=== PATIENT | female | born 1950 | race Caucasian/White ===

== ENCOUNTER → 2017-11-09 | Day surgery (SDC) | payer MEDICARE, OTHER ==
[2017-11-02 14:44] LABS: BASOPHILS % 0.5 % (0.0-1.0); EOSINOPHILS # (AUTO) 0.1 (0.0-0.4); EOSINOPHILS % 1.6 % (0.0-6.0); HEMATOCRIT 34.9 % (34.2-44.1); HEMOGLOBIN 11.4 g/dL (12.0-16.0); LYMPHOCYTES # (AUTO) 2.4 (1.0-3.2); LYMPHOCYTES % 42.4 % (18.0-39.1); MEAN CORPUSCULAR HEMOGLOBIN 28.1 pg (28-32); MEAN CORPUSCULAR HGB CONC 32.7 g/dL (31-35); MONOCYTES # (AUTO) 0.4 (0.2-0.8); MONOCYTES % 6.3 % (4.4-11.3); NEUTROPHILS # (AUTO) 2.8 (2.1-6.9); PLATELET COUNT 216 x10e3/uL (140-360); RED BLOOD COUNT 4.06 x10e6/uL (3.6-5.1)
--- NOTE | 2017-11-02 15:57 | Diagnostic Imaging Report ---
PROCEDURE: Frontal and lateral views of the chest. COMPARISON: None. INDICATIONS: PRE OP LEFT TRIGGER FINGER RELEASE SX FINDINGS: Lines/tubes: None. Lungs: The lungs are well inflated. Mild increased lucency in the upper lobes, which may reflect COPD changes. Curvilinear density projecting in the right lower lung only seen on the frontal view, which is likely external to the patient. A linear density in the left mid to lower lung likely reflects subsegmental atelectasis. No consolidation or pulmonary edema. Pleura: There is no pleural effusion or pneumothorax. Heart and mediastinum: Cardiac silhouette is unremarkable. Pulmonary vasculature is normal. Bones: No acute bony abnormality. Metallic prosthesis noted in the right proximal humerus, which is intact. Multiple metallic clips project over the lower cervical area. IMPRESSION: 1. likely COPD changes, without acute cardiopulmonary abnormalities. Chip Sparks M.D. Dictated by: Chip Sparks M.D. on 11/02/2017 at 15:57 Electronically approved by: Chip Sparks M.D. on 11/02/2017 at 15:57
[~2017-11-09] MED LIST: AMITRIPTYLINE H25 MG PO; BACITRACIN ZINC 15 GM OINT ONE; BUPIVACAINE HCL 0.5% INJ 30 ML VIAL INJ ONE; CEFAZOLIN SOD 1 GM VIAL ONE; CELEBREX100 MG PO; COREG12.5 MG PO; DEXAMETHASONE SOD PHOS INJ 4 MG/ML VIAL ONE; FENTANYL CITRATE/PF 100MCG/2 ML INJ ONE; GABAPENTIN100 MG PO; LIDOCAINE HCL 2% LOCAL INJ 5 ML SDV VIAL INJ ONE; LISINOPRIL10 MG PO; MIDAZOLAM HCL 2 MG/2 ML VIAL ONE; MUPIROCIN 2% OINT 22 GM TUBE ONE; NEXIUM5 MG PO; ONDANSETRON HCL INJ 2 MG/ML VIAL ONE; PROPOFOL IV EMULSION 10 MG/ML 20 ML VIAL ONE; ROPINIROLE HCL1 MG PO; SEVOFLURANE INHAL SOLN 250 ML PEN BTL ONE; SYNTHROID125 MCG PO; ZETIA10 MG PO
--- OUTSIDE RECORDS SUMMARY | 2017-11-09 05:19 | XMS REPORT ---
[facility] Address Unknown Phone Unavailable Care Team Providers Care Assistant Store Manager Operations Name Role Phone FERNANDO JASSO Unavailable Unavailable Problems This patient has no known problems. Allergies, Adverse Reactions, Alerts This patient has no known allergies or adverse reactions. Medications This patient has no known medications. Results Test Description Test Time Test Comments Text Results Atomic Results Result Comments CHEST 2 VIEWS [place] [address] Patient Name: HATTIE FINNEGAN MR #: [id number] : 1950 Age/Sex: 66/F Req #: [id number] Adm Physician: Ordered by: MARTA THOMPSON MD Report #: [id number] Location: OR Room/Bed: Procedure: [id number] DX/CHEST 2 VIEWS Exam Date: 11/02/17 Exam Time : 1450 REPORT STATUS: Signed PROCEDURE: Frontal and lateral views of the chest. COMPARISON: None. INDICATIONS: PRE OP LEFT TRIGGER FINGER RELEASE SX FINDINGS: Lines/tubes: None. Lungs: The lungs are well inflated. Mild increased lucency in the upper lobes, which may reflect COPD changes. Curvilinear density projecting in the right lower lung only seen on the frontal view, which is likely external to the patient. A linear density in the left mid to lower lung likely reflects subsegmental atelectasis. No consolidation or pulmonary edema. Pleura: There is no pleural effusion or pneumothorax. Heart and mediastinum: Cardiac silhouette is unremarkable. Pulmonary vasculature is normal. Bones: No acute bony abnormality. Metallic prosthesis noted in the right proximal humerus, which is intact. Multiple metallic clips project over the lower cervical area. IMPRESSION: 1. likely COPD changes, without acute cardiopulmonary abnormalities. Theron Sparks M.D. Dictated by : Theron Sparks M.D. on 11/02/2017 at 15:57 Electronically approved by: Theron Sparks M.D. on 11/02/2017 at 15:57 Dictated By : THERON SPARKS MD [id number] Transcribed By: CARISA on 11/02/17 1667 COPY TO: MARTA THOMPSON MD
--- OUTSIDE RECORDS SUMMARY | 2017-11-09 05:19 | XMS REPORT | Clinical Summary ---
Author Author [facility] Organization [facility] Address Unknown Phone Unavailable Care Team Providers Care Nylon Winder Name Role Phone Shivani Amezquita MD PCP Allergies Active Allergy Reactions Severity Noted Date Comments Morphine Low 03/26/2017 Sweat and malaise. Current Medications Prescription Sig. Disp. Refills Start End Date Status Date lisinopril Take 20 mg by mouth every Active (PRINIVIL,ZESTRIL) 20 mg evening. tablet pantoprazole (PROTONIX) Take 40 mg by mouth every Active 40 MG EC tablet morning. rOPINIRole (REQUIP) 1 MG Take 1-2 mg by mouth Active tablet nightly. carvedilol CR (COREG CR) Take 80 mg by mouth every Active 80 MG 24 hr capsule morning. calcium phosphate-vitamin Chew 1 tablet every Active D3 (CITRACAL + D3, evening. CALCIUM PHOS,) 250 mg calcium- 250 unit tablet,chewable DM/P-EPHED/ACETAMINOPH/DO Take 1 Dose by mouth 2 Active XYLAM (NYQUIL D ORAL) (two) times a day as needed. levothyroxine (SYNTHROID, Take 206 mcg by mouth Active LEVOXYL) 137 mcg tablet once a week. Pt takes 1.5 tablets of 137 mcg=dose of 206 mcg fluticasone (FLONASE) 50 02/12/20 Active mcg/actuation nasal spray 17 cyclobenzaprine Take 10 mg by mouth 3 Active (FLEXERIL) 10 mg tablet (three) times a day as needed for muscle spasms. ezetimibe (ZETIA) 10 mg Take 10 mg by mouth Active tablet daily. zolpidem (AMBIEN) 5 MG Take 5 mg by mouth Active tablet nightly as needed for sleep. ranitidine (ZANTAC) 150 Take 150 mg by mouth 2 Active MG tablet (two) times a day. acetaminophen-codeine Take 1-2 tablets by mouth 15 tablet 0 11/16/19 11/19/19 (TYLENOL WITH CODEINE #3) every 6 (six) hours as 17 17 300-30 mg per tablet needed for moderate pain for up to 12 doses. celecoxib (CeleBREX) 200 Take 200 mg by mouth 06/11/20 Discontin MG capsule every evening. 17 ued levothyroxine (SYNTHROID, Take 137 mcg by mouth 04/06/20 Discontin LEVOXYL) 137 mcg tablet every morning. 17 ued ezetimibe (ZETIA) 10 mg Take 10 mg by mouth 04/06/20 Discontin tablet nightly. 17 ued biotin 5,000 mcg Take 5,000 mg by mouth 06/14/20 Discontin tablet,disintegrating every evening. 17 ued carisoprodol (SOMA) 350 Take 350-700 mg by mouth 06/11/20 Discontin MG tablet nightly. 17 ued HYDROcodone-acetaminophen Take 1-2 tablets by mouth 30 tablet 0 04/26/20 (NORCO) 5-325 mg per every 4 (four) hours as 17 17 tablet needed for moderate pain or severe pain for up to 30 days. Max Daily Amount: 12 tablets ondansetron ODT (ZOFRAN Take 1 tablet (8 mg 30 tablet 0 03/28/20 Discontin ODT) 8 MG disintegrating total) by mouth every 8 17 17 ued tablet (eight) hours as needed for nausea or vomiting for up to 30 days. traMADol (ULTRAM) 50 mg Take 1 tablet (50 mg 30 tablet 0 03/28/20 tablet total) by mouth every 6 17 17 (six) hours as needed for moderate pain for up to 7 days. promethazine (PHENERGAN) Take 1 tablet (25 mg 30 tablet 0 03/29/20 04/28/20 25 MG tablet total) by mouth every 6 17 17 (six) hours as needed for nausea or vomiting for up to 30 days. amoxicillin-pot 04/05/20 06/11/20 Discontin clavulanate (AUGMENTIN) 17 17 ued 875-125 mg per tablet chlordiazepoxide-clidiniu Take 1 capsule by mouth 4 10/20/20 Discontin m (LIBRAX) 5-2.5 mg per (four) times a day before 17 ued capsule meals and nightly. nitrofurantoin Take 100 mg by mouth 4 06/11/20 Discontin (MACRODANTIN) 100 MG (four) times a day. 17 ued capsule Active Problems Problem Noted Date Calculus of gallbladder with acute cholecystitis 03/27/2017 Hypertension 03/27/2017 GERD (gastroesophageal reflux disease) 03/27/2017 Right upper quadrant abdominal pain 03/26/2017 Biliary colic 03/26/2017 Encounters Date Type Specialty Care Team Description 10/27/2017 Hospital Radiology Gil Amezquita MD Thoracic spine pain Encounter 10/21/2017 Procedure Pass Radiology 10/21/2017 Transcribe Access Gil Amezquita MD Thoracic spine pain Orders (Primary Dx) 08/20/2017 Procedure visit Neurology Teena Bone MD Bilateral carpal tunnel syndrome 06/14/2017 Hospital Gastroenterology Trevor Mosqueda MD Encounter 06/14/2017 Anesthesia Gastroenterology Janeth Gonzales Event 06/14/2017 Procedure Pass Gastroenterology 06/14/2017 Surgery Gastroenterology Trevor Mosqueda MD COLONOSCOPY 04/13/2017 Hospital Radiology Gil Amezquita MD Abdominal pain, Encounter unspecified location 04/12/2017 Transcribe Access Gil Amezquita MD Abdominal pain, Orders unspecified location (Primary Dx) 04/07/2017 Telephone General Surgery Laine Anand MA 04/06/2017 Lab Lab Sam Ashton MD Nausea; Generalized abdominal pain 04/06/2017 Office Visit General Surgery Sam Ashton MD Generalized abdominal pain (Primary Dx); Nausea; Surgery follow-up examination; Calculus of gallbladder with acute cholecystitis without obstruction 03/27/2017 Anesthesia General Internal Medicine Junie Hernandez MD Event 03/27/2017 Procedure Pass General Surgery 03/27/2017 Surgery General Surgery Sam Ashton MD CHOLECYSTECTOMY, LAPAROSCOPIC 03/26/2017 [facility] General Internal Medicine Martell Cobian MD Calculus of gallbladder - Encounter Sincere Coronado MD with acute cholecystitis 03/28/2017 without obstruction (Primary Dx); Right upper quadrant abdominal pain; Biliary colic 02/15/2017 Hospital Radiology Gil Amezquita MD Encounter for screening Encounter mammogram for malignant neoplasm of breast 02/12/2017 Transcribe Physical Therapy Martell Soto MD Unspecified fracture of Orders the lower end of right radius, initial encounter for closed fracture (Primary Dx); Trigger thumb of left hand; Trigger finger, right middle finger 02/12/2017 Transcribe Access Gil Amezquita MD Encounter for screening Orders mammogram for malignant neoplasm of breast (Primary Dx) 01/11/2017 Transcribe Physical Therapy Martell Soto MD Wrist fracture, closed, Orders left, initial encounter (Primary Dx); Trigger finger of left thumb; Trigger middle finger of right hand 11/20/2016 Telephone Orthopedic Surgery Maria G Cannon MA 11/17/2016 Telephone Orthopedic Surgery Maria G Cannon MA 11/15/2016 Emergency Emergency Medicine Phani De Luna MD Wrist fracture, right, closed, initial encounter (Primary Dx) after 11/08/2016 Family History Medical History Relation Name Comments Colon cancer Mother Diabetes Mother Heart disease Mother Colon cancer Sister Colon polyps Sister Heart disease Sister Ulcerative colitis Sister Relation Name Status Comments Mother Sister Social History Tobacco Use Types Packs/Day Years Used Date Never Smoker Alcohol Use Drinks/Week oz/Week Comments No Sex Assigned at Date Recorded Not on file Last Filed Vital Signs Vital Sign Reading Time Taken Blood Pressure 116/57 06/14/2017 11:53 AM CDT Pulse 69 06/14/2017 11:53 AM CDT Temperature 37.1 C (98.8 F) 06/14/2017 11:31 AM CDT Respiratory Rate 18 06/14/2017 11:53 AM CDT Oxygen Saturation 92% 06/14/2017 11:53 AM CDT Inhaled Oxygen - - Concentration Weight 93.4 kg (206 lb) 06/14/2017 9:26 AM CDT Height 167.6 cm (5' 6") 06/14/2017 9:26 AM CDT Body Mass Index 33.25 06/14/2017 9:26 AM CDT Plan of Treatment Health Maintenance Due Date Last Done Comments COLONOSCOPY 1998 ZOSTER VACCINE 2008 PNEUMOCOCCAL 2013 POLYSACCHARIDE VACCINE AGE 65 AND OVER PNEUMOCOCCAL-13 2013 INFLUENZA VACCINE 03/23/2017 MAMMOGRAM 02/15/2019 02/15/2017 Procedures Procedure Name Priority Date/Time Associated Diagnosis Comments ESOPHAGOGASTRODUODENOSCOP 06/14/2017 HX OF COLON POLYPS, Y (EGD) 10:30 AM CDT SCREENING, FAMILY HX OF COLON CANCER, DYSPEPSIA, ESPOHAGITIS COLONOSCOPY 06/14/2017 HX OF COLON POLYPS, 10:30 AM CDT SCREENING, FAMILY HX OF COLON CANCER, DYSPEPSIA, ESPOHAGITIS RI AN ELECTIVE Routine 03/27/2017 ENDOTRACHEAL AIRWAY 12:23 PM CDT Procedure Note - Glenna Bella - 03/27/2017 12:20 PM CDT Airway Date/Time: 03/27/2017 11:59 AM Performed by: JUNIE HERNANDEZ Authorized by: JUNIE HERNANDEZ Location: OR Urgency: Elective Difficult Airway: No Anesthesio logist: JUNIE HERNANDEZ Other Anesthesia Staff: GLENNA BELLA Performed by: other anesthesia staff Preoxygena chan with 100% O2: Yes C-spine Precaution s Maintained Throughout : Yes Mask Ventilatio n: Easy mask Final Airway Type: Endotrache al airway Final Endotrache al Airway: ETT Cuffed: Yes Technique Used: Video laryngosco py Devices/Me thods Used in Placement: Intubatin g stylet Insertion Site: Oral Blade type: Glidescope . Laryngosco pe Blade/Vide olaryngosc ope Blade Size: 3 ETT Size (mm): 7.0 Cuff at minimum occlusion pressure: Yes Measured from: Teeth ETT to Teeth (cm): 19 Placement Verified by: CO2 detection Placement Verified by comment: Video laryngosco py Rapid Sequence Induction (RSI): No Modified RSI: No Number of Attempts at Approach: 1 CHOLECYSTECTOMY, 03/27/2017 Calculus of gallbladder LAPAROSCOPIC 12:10 PM CDT without mention of cholecystitis or obstruction RI APPLY LONG ARM SPLINT Routine 11/15/2016 Results for this 7:40 PM CDT procedure are in the results section. after 11/08/2016 Results * MRI Thoracic Spine Wo Contrast (10/27/2017 6:47 PM) Specimen Performing Laboratory [facility] [address] [place] [address] Narrative EXAMINATION:MRI THORACIC SPINE WO CONTRAST CLINICAL HISTORY:M54.6 Pain in thoracic spine, THORACIC PAIN COMPARISON:CT abdomen April 13, 2017.. FINDINGS: 1. There is no fracture demonstrated. 2.There is abnormal marrow signal intensity in the posterior aspect of the centrum of T9 and anterior aspect of the centrum of T3. The T9 lesion is demonstrated on the prior study and has an appearance of a hemangioma on the prior CT examination. I suspect both lesions reflect incidental hemangiomas. There is otherwise no bone lesion demonstrated. 3.There is mild to moderate thoracic spondylosis which is predominantly ventral in nature. There is no significant dorsal spondylosis or canal stenosis. In fact the patient has a large thoracic spinal canal. 4.There is no signal abnormality demonstrated in the thoracic spinal cord. 5.There is no other significant finding. IMPRESSION: No acute abnormality. [facility]-[id number] Procedure Note Interface, Radiology Results Incoming - 10/27/2017 7:04 PM PRESS HAND SUPERVISOR EXAMINATION: MRI THORACIC SPINE WO CONTRAST CLINICAL HISTORY: M54.6 Pain in thoracic spine, THORACIC PAIN COMPARISON: CT abdomen April 13, 2017.. FINDINGS: 1. There is no fracture demonstrated. 2. There is abnormal marrow signal intensity in the posterior aspect of the centrum of T9 and anterior aspect of the centrum of T3. The T9 lesion is demonstrated on the prior study and has an appearance of a hemangioma on the prior CT examination. I suspect both lesions reflect incidental hemangiomas. There is otherwise no bone lesion demonstrated. 3. There is mild to moderate thoracic spondylosis which is predominantly ventral in nature. There is no significant dorsal spondylosis or canal stenosis. In fact the patient has a large thoracic spinal canal. 4. There is no signal abnormality demonstrated in the thoracic spinal cord. 5. There is no other significant finding. IMPRESSION: No acute abnormality. [facility]-[id number] * Surgical pathology request (06/14/2017 11:10 AM) Only the most recent of 2 results within the time period is included. Component Value Ref Range Surgical pathology report See link below for PDF Lab Report Specimen Performing Laboratory [facility] [email or web address]] DEPARTMENT OF PATHOLOGY AND GENOMIC MEDICINE [address] [place] [address] * CTA Abdomen W Wo Contrast (04/13/2017 3:28 PM) Specimen Performing Laboratory [facility] [address] [place] [address] Narrative EXAMINATION:CT ANGIOGRAM ABDOMEN W WO CONTRAST CLINICAL HISTORY:R10.9 Unspecified abdominal pain, abdominal pain COMPARISON:None. FINDINGS: There is a small nodule near the lateral segment of the middle lobe measuring approximately 5 mm which is noncalcified. There is bandlike linear opacity in the posterior costophrenic sulci greater on the right suggesting an area of atelectasis and a small noncalcified nodule at the left base in the left costophrenic angle measuring approximately 5 to 6 mm. There is no pleural fluid noted. The liver and spleen appear normal in size. There is diffuse fatty infiltration of the liver. The gallbladder has been removed. The adrenal glands and pancreas appear normal in size and texture. Minimal fullness in the right renal collecting system with an apparent stone in the mid right ureter measuring approximately 8 mm in diameter. Again this is producing minimal if any obstruction otherwise no significant finding is identified. Vascular compartment: There is no evidence of aneurysm. There is no dissection. The renal arteries are patent on both sides. No stenosis is identified. The superior mesenteric artery and celiac axis appear widely patent. The inferior mesenteric artery is patent. Only mild arthritic chronic changes are present involving the aorta. The common iliac arteries, external and internal iliac arteries are all widely patent. IMPRESSION: 1. Mild fullness in the right ureter proximally with a virtually nonobstructing stone measuring 7 to 8 mm in diameter at approximately L5 to the right. A phlebolith in an adjacent vein is felt to be less likely 2. No aneurysm or dissection is identified. [id number] Procedure Note Hm Interface, Radiology Results Incoming - 04/13/2017 3:58 PM CDT EXAMINATION: CT ANGIOGRAM ABDOMEN W WO CONTRAST CLINICAL HISTORY: R10.9 Unspecified abdominal pain, abdominal pain COMPARISON: None. FINDINGS: There is a small nodule near the lateral segment of the middle lobe measuring approximately 5 mm which is noncalcified. There is bandlike linear opacity in the posterior costophrenic sulci greater on the right suggesting an area of atelectasis and a small noncalcified nodule at the left base in the left costophrenic angle measuring approximately 5 to 6 mm. There is no pleural fluid noted. The liver and spleen appear normal in size. There is diffuse fatty infiltration of the liver. The gallbladder has been removed. The adrenal glands and pancreas appear normal in size and texture. Minimal fullness in the right renal collecting system with an apparent stone in the mid right ureter measuring approximately 8 mm in diameter. Again this is producing minimal if any obstruction otherwise no significant finding is identified. Vascular compartment: There is no evidence of aneurysm. There is no dissection. The renal arteries are patent on both sides. No stenosis is identified. The superior mesenteric artery and celiac axis appear widely patent. The inferior mesenteric artery is patent. Only mild arthritic chronic changes are present involving the aorta. The common iliac arteries, external and internal iliac arteries are all widely patent. IMPRESSION: 1. Mild fullness in the right ureter proximally with a virtually nonobstructing stone measuring 7 to 8 mm in diameter at approximately L5 to the right. A phlebolith in an adjacent vein is felt to be less likely 2. No aneurysm or dissection is identified. [id number] * Estimated GFR (04/06/2017 11:33 AM) Only the most recent of 3 results within the time period is included. Component Value Ref Range GFR Non Af Amer 83 mL/min/1.73 m2 GFR Af Amer >90 mL/min/1.73 m2 Comment: Chronic kidney disease: <60 mL/min/1.73m2 Kidney failure: <15 mL/min/1.73m2 The estimated GFR is calculated from the IDMS-traceable Modification of Diet in Renal Disease Equation. The accuracy of the calculation is poor when the creatinine is normal. Calculated values >90 mL/min/1.73m2 are not reported. This equation has not been validated in children (<18 years), women, the elderly (>70 years), or ethnic groups other than Caucasians and Americans. Specimen Performing Laboratory Plasma specimen [facility] [[email or web address]] DEPARTMENT OF PATHOLOGY AND GENOMIC MEDICINE [address] [place] [address] * CBC with platelet and differential (04/06/2017 11:33 AM) Only the most recent of 3 results within the time period is included. Component Value Ref Range WBC 7.38 4.50 - 11.00 k/uL RBC 4.09 (L) 4.20 - 5.50 m/uL HGB 11.8 (L) 12.0 - 16.0 g/dL HCT 35.0 (L) 37.0 - 47.0 % MCV 85.6 82.0 - 100.0 fL MCH 28.9 27.0 - 34.0 pg MCHC 33.7 31.0 - 37.0 g/dL RDW - SD 40.2 37.0 - 55.0 fL MPV 9.3 8.8 - 13.2 fL Platelet count 277 150 - 400 k/uL Nucleated RBC 0.00 /100 WBC Neutrophils 62.9 39.0 - 69.0 % Lymphocytes 27.0 25.0 - 45.0 % Monocytes 8.1 0.0 - 10.0 % Eosinophils 1.2 0.0 - 5.0 % Basophils 0.5 0.0 - 1.0 % Immature granulocytes 0.3Comment: "Immature granulocytes" 0.0 - 1.0 % (promyelocytes, myelocytes, metamyelocytes) Specimen Performing Laboratory Blood [facility] [[email or web address]] DEPARTMENT OF PATHOLOGY AND [employer] [facility] [address] [place] [address] * Lipase level (04/06/2017 11:33 AM) Only the most recent of 2 results within the time period is included. Component Value Ref Range Lipase 65 (H) 13 - 60 U/L Specimen Performing Laboratory Plasma specimen [facility] [email or web address]] DEPARTMENT PATHOLOGY AND [facility] [address] [place] [address] * Amylase level (04/06/2017 11:33 AM) Component Value Ref Range Amylase 49 13 - 73 U/L Specimen Performing Laboratory Plasma specimen [facility] [email or web address]] DEPARTMENT PATHOLOGY AND [facility] [address] [place] [address] * Hepatic function panel (04/06/2017 11:33 AM) Only the most recent of 2 results within the time period is included. Component Value Ref Range Albumin 4.5 3.5 - 5.0 g/dL Total bilirubin 0.3 0.0 - 1.2 mg/dL Bilirubin direct <0.1 0.0 - 0.3 mg/dL Alkaline phosphatase 86 35 - 104 U/L Protein 7.5 6.3 - 8.3 g/dL Comment: 4.6-7.0 g/dL 1 week 4.4-7.6 g/dL 7 months-1year 5.1-7.3 g/dL 1-2 years 5.6-7.5 g/dL >3 years 6.0-8.0 g/dL 18-150 6.3-8.3 g/dL ALT 19 5 - 50 U/L AST 11 10 - 35 U/L Specimen Performing Laboratory Plasma specimen [facility] [[email or web address]] DEPARTMENT PATHOLOGY AND [facility] [id number] [place] [address] [place] [address] * Basic metabolic panel (04/06/2017 11:33 AM) Only the most recent of 2 results within the time period is included. Component Value Ref Range Sodium 140 135 - 148 mEq/L Potassium 4.3 3.5 - 5.0 mEq/L Chloride 102 98 - 112 mEq/L CO2 26 24 - 31 mEq/L Anion gap 12 7 - 15 mEq/L Comment: Starting from November , anion gap calculation no longer incorporates potassium. Please note the change. BUN 13 8 - 23 mg/dL Creatinine 0.7 0.5 - 0.9 mg/dL Glucose 89 65 - 99 mg/dL Calcium 9.5 8.8 - 10.2 mg/dL Specimen Performing Laboratory Plasma specimen [facility] PATHOLOGY AND [address] [place] [address] * Phosphorus level (03/28/2017 4:13 AM) Component Value Ref Range Phosphorus 4.0 2.4 - 4.5 mg/dL Specimen Performing Laboratory Plasma specimen [facility] [[email or web address]] DEPARTMENT OF PATHOLOGY AND [address] [place] [address] * Magnesium level (03/28/2017 4:13 AM) Component Value Ref Range Magnesium 2.2 1.6 - 2.4 mg/dL Specimen Performing Laboratory Plasma specimen [facility] PATHOLOGY AND [address] [place] [address] * Troponin (03/26/2017 5:31 PM) Only the most recent of 2 results within the time period is included. Component Value Ref Range Troponin <0.300 0.000 - 0.300 ng/mL Comment: 0.30 - 1.49 ng/ml May indicate increased risk of acute coronary syndrome. >=1.5 ng/ml Consistent with acute myocardial infarction. The diagnostic value of a single normal or non-diagnostic result is questionable. Serial samples at 2-6 hour intervals are required to rule out acute myocardial injury. Specimen Performing Laboratory Plasma specimen [facility] [[email or web address]] DEPARTMENT PATHOLOGY AND [address] [place] [address] * US Gallbladder (03/26/2017 2:33 PM) Specimen Performing Laboratory [address] [address] Narrative EXAMINATION:US GALLBLADDER CLINICAL HISTORY:Cholecystitis COMPARISON:None. FINDINGS: PANCREAS: The pancreas is not well seen on the current study. LIVER: The liver has no mass lesion. There is no intrahepatic biliary dilatation. The liver has a normal echogenic appearance. CBD: 0.3 cm, within normal limits. Portal vein: The portal vein demonstrates normal hepatopedal flow. Gallbladder:The gallbladder has multiple stones. There is no gallbladder wall thickening or any pericholecystic fluid. IMPRESSION: 1. Multiple gallstones are present. 2. Common bile duct is not dilated. 3. There is no pericholecystic fluid. [id number] Procedure Note Interface, Radiology Results Incoming - 03/26/2017 2:39 PM CDT EXAMINATION: US GALLBLADDER CLINICAL HISTORY: Cholecystitis COMPARISON: None. FINDINGS: PANCREAS: The pancreas is not well seen on the current study. LIVER: The liver has no mass lesion. There is no intrahepatic biliary dilatation. The liver has a normal echogenic appearance. CBD: 0.3 cm , within normal limits. Portal vein: The portal vein demonstrates normal hepatopedal flow. Gallbladder: The gallbladder has multiple stones. There is no gallbladder wall thickening or any pericholecystic fluid. IMPRESSION: 1. Multiple gallstones are present. 2. Common bile duct is not dilated. 3. There is no pericholecystic fluid. [id number] * XR Chest 1 Vw Portable (03/26/2017 2:00 PM) Specimen Performing Laboratory [address] [address] Narrative EXAMINATION:XR CHEST 1 VW PORTABLE CLINICAL HISTORY:Cough COMPARISON:April 08, 2015 FINDINGS: Heart size is borderline. The mediastinum is unremarkable. The lungs are clear. Changes from a right shoulder arthroplasty are noted. Postop changes are noted in the neck IMPRESSION: Borderline to mild cardiomegaly [id number] Procedure Note Interface, Radiology Results Incoming - 03/26/2017 2:23 PM CDT EXAMINATION: XR CHEST 1 VW PORTABLE CLINICAL HISTORY: Cough COMPARISON: April 08, 2015 FINDINGS: Heart size is borderline. The mediastinum is unremarkable. The lungs are clear. Changes from a right shoulder arthroplasty are noted. Postop changes are noted in the neck IMPRESSION: Borderline to mild cardiomegaly [id number] * Partial thromboplastin time, activated (03/26/2017 1:15 PM) Component Value Ref Range PTT 25.0 23.0 - 36.0 sec Comment: PTT therapeutic range for unfractionated heparin is 61.0-112.0 seconds which corresponds to Anti-Xa 0.3-0.7 U/ml. Specimen Performing Laboratory Blood [facility] [[email or web address]] DEPARTMENT OF PATHOLOGY AND [facility] [address] [place] [address] * Prothrombin time with INR (03/26/2017 1:15 PM) Component Value Ref Range Prothrombin time 12.5 12.0 - 15.0 sec INR 0.9 Comment: The International Normalized Ratio (INR) is a therapeutic monitoring tool for patients who are stable on oral anticoagulant therapy. An INR of 2.0-3.0 is suggested for deep vein thrombosis/pulmonary embolism. Specimen Performing Laboratory Blood [facility] OF PATHOLOGY AND [facility] [address] [place] [address] * Venous blood gas (03/26/2017 1:15 PM) Component Value Ref Range pH, venous 7.43 (H) 7.32 - 7.42 pCO2, venous 39 (L) 45 - 51 mmHg pO2, venous 51 (H) 25 - 40 mmHg Base excess, venous 1 -2 - 2 meq/L O2 saturation, venous 88 (H) 40 - 70 % Bicarbonate, venous 25.3 21.0 - 28.0 mmol/L FiO2, inspired O2% Unknown % Specimen Performing Laboratory Blood [facility] PATHOLOGY AND [facility] [address] [place] [address] * Comprehensive metabolic panel (03/26/2017 1:15 PM) Component Value Ref Range Sodium 136 135 - 148 mEq/L Potassium 4.2 3.5 - 5.0 mEq/L Chloride 98 98 - 112 mEq/L CO2 24 24 - 31 mEq/L Anion gap 14 7 - 15 mEq/L Comment: Starting from November , anion gap calculation no longer incorporates potassium. Please note the change. BUN 16 8 - 23 mg/dL Creatinine 0.9 0.5 - 0.9 mg/dL Glucose 93 65 - 99 mg/dL Calcium 9.3 8.8 - 10.2 mg/dL Protein 7.4 6.3 - 8.3 g/dL Comment: [place] 4.6-7.0 g/dL 1 week 4.4-7.6 g/dL 7 months-1year 5.1-7.3 g/dL 1-2 years 5.6-7.5 g/dL >3 years 6.0-8.0 g/dL 18-150 6.3-8.3 g/dL Albumin 4.5 3.5 - 5.0 g/dL A/G ratio 1.6 0.7 - 3.8 Alkaline phosphatase 79 35 - 104 U/L AST 13 10 - 35 U/L ALT 18 5 - 50 U/L Total bilirubin 0.2 0.0 - 1.2 mg/dL Specimen Performing Laboratory Plasma specimen [facility] [email or web address]] DEPARTMENT OF PATHOLOGY AND GENOMIC MEDICINE [address] [place] [address] * Mammo Screening w Cad Bilateral (02/15/2017 1:15 PM) Specimen Performing Laboratory [facility] [address] [place] [address] Narrative PROCEDURE: MAMMO SCREENING W CAD BILATERAL Computer aided detection was utilized for the interpretation of the bilateral digital screening mammogram. COMPARISON EXAMS: None are currently available. DENSITY:There are scattered areas of fibroglandular density. FINDINGS: No suspicious finding is seen. There are vascular calcifications. IMPRESSION: No mammographic evidence of malignancy. Recommend annual screening mammography and correlation with physical exam. BI-RADS 1:NEGATIVE This facility is accredited by the [employer] for Mammography. A negative x-ray report should not delay biopsy if a dominant or clinically suspicious mass is present.Not all cancers are identified by x-ray. [id number] * SPLINT APPLICATION (11/15/2016 7:40 PM) Narrative Ezio Stanford PA-C 11/15/20163:53 PM Splint Application Performed by: EZIO STANFORD Authorized by: PHNAI DE LUNA Consent: Consent obtained:Verbal Consent given by:Patient Risks discussed:Discoloration, numbness, pain and swelling Pre-procedure details: Sensation:Normal Procedure details: Laterality:Right Location:Wrist Wrist:R wrist Splint type:Sugar tong Supplies:Ortho-Glass and cotton padding Post-procedure details: Pain:Improved Sensation:Normal Patient tolerance of procedure:Tolerated well, no immediate complications * XR Wrist 3+ Vw Right (11/15/2016 3:15 PM) Specimen Performing Laboratory [facility] [address] [place] [address] Narrative EXAM:XR WRIST 3VW RIGHT CLINICAL:fall COMPARISON:None. IMPRESSION: 1.Comminuted fracture of the distal radius extending from the metaphysis into the epiphysis as well as intra-articular extension at the radiocarpal joint. 2.Moderate degenerative changes at the first carpometacarpal joint. [id number] Procedure Note Interface, Radiology Results Incoming - 11/15/2016 3:33 PM CDT EXAM: XR WRIST 3 VW RIGHT CLINICAL: fall COMPARISON: None. IMPRESSION: 1.Comminuted fracture of the distal radius extending from the metaphysis into the epiphysis as well as intra-articular extension at the radiocarpal joint. 2.Moderate degenerative changes at the first carpometacarpal joint. [id number] * XR Shoulder 2+ Vw Right (11/15/2016 3:15 PM) Specimen Performing Laboratory [address] [address] Narrative EXAM:XR SHOULDER 2VW RIGHT CLINICAL:SHOULDER PAINANY ETIOLOGY COMPARISON:None. IMPRESSION: 1.Generalized bone demineralization. 2.Right shoulder hemiarthroplasty. Hardware intact. Alignment within normal limits. 3.Multiple surgical clips overlie the lower neck. 4.Visualized lung head are clear. [id number] Procedure Note Interface, Radiology Results Incoming - 11/15/2016 3:24 PM CDT EXAM: XR SHOULDER 2 VW RIGHT CLINICAL: SHOULDER PAIN ANY ETIOLOGY COMPARISON: None. IMPRESSION: 1.Generalized bone demineralization. 2.Right shoulder hemiarthroplasty. Hardware intact. Alignment within normal limits. 3.Multiple surgical clips overlie the lower neck. 4.Visualized lung head are clear. [id number] * CT Head Wo Contrast (11/15/2016 2:57 PM) Specimen Performing Laboratory [address] [address] Narrative EXAMINATION: CT HEAD WO CONTRAST COMPARISON: None CLINICAL HISTORY fall. TECHNIQUE: Non-contrast CT scan of the head with thin-section contiguous transaxial images from the skull base to the vertex. CT scans are performed using radiation dose reduction techniques. Technical factors are evaluated and adjusted to ensure appropriate moderation of exposure. Automated dose management technology is applied to adjust radiation exposure while achieving a highly diagnostic quality image. FINDINGS: Nonenhanced emergency cranial CT was performed at approximately 1450 hours. The ventricular system and subarachnoid spaces are within normal limits. There is no definite acute intracranial edema or hemorrhage or mass effect or midline shift or extra-axial lesion. Bone settings demonstrate the calvarium to be intact. There are no air-fluid levels in the sinuses. IMPRESSION: No significant acute intracranial abnormalities. [facility]-[id number] Procedure Note [facility], Radiology Results Incoming - 11/15/2016 3:14 PM CDT EXAMINATION: CT HEAD WO CONTRAST COMPARISON: None CLINICAL HISTORY fall. TECHNIQUE: Non-contrast CT scan of the head with thin-section contiguous transaxial images from the skull base to the vertex. CT scans are performed using radiation dose reduction techniques. Technical factors are evaluated and adjusted to ensure appropriate moderation of exposure. Automated dose management technology is applied to adjust radiation exposure while achieving a highly diagnostic quality image. FINDINGS: Nonenhanced emergency cranial CT was performed at approximately 1450 hours. The ventricular system and subarachnoid spaces are within normal limits. There is no definite acute intracranial edema or hemorrhage or mass effect or midline shift or extra-axial lesion. Bone settings demonstrate the calvarium to be intact. There are no air-fluid levels in the sinuses. IMPRESSION: No significant acute intracranial abnormalities. [facility]-[id number] after 11/08/2016 Insurance Payer Benefit Subscriber ID Type Phone Address Plan / Group MEDICARE MEDICARE xxxxxxxxxx Medicare [place], [place] PART A AND B xxxxxxxxxx [place] [address]
--- NOTE | 2017-11-10 08:30 | Operative Report ---
DATE OF PROCEDURE: November 09, 2017 PREOPERATIVE DIAGNOSES 1. Right carpal tunnel syndrome. 2. Left thumb trigger. POSTOPERATIVE DIAGNOSES 1. Right carpal tunnel syndrome. 2. Left thumb trigger. PROCEDURES 1. Right open carpal tunnel release. 2. Left thumb trigger. ANESTHESIA: General. HISTORY: The patient is a 66-year-old female with EMG-proven right carpal tunnel syndrome. Risks, benefits and alternatives of treatment were discussed with the patient. The patient is prepared to undergo the procedure as outlined. PROCEDURE: The patient was brought to the operating theater. After the induction of adequate general inhalation anesthesia, the patient was prepped and draped in the supine position. A time out was performed by the entire operating room team. A 2.5-cm incision was marked out in the intrathenar space. The right upper extremity was exsanguinated and a tourniquet was inflated to a pressure of 250 mmHg. The incision was made through the skin and subcutaneous tissues and all venous tributaries were controlled with bipolar cautery. The incision was deepened through the palmar fascia until the transverse carpal ligament was identified. The ligament was sharply sectioned, taking care to protect and preserve the median nerve underlying it. After the complete width of the ligament had been transected, the distal volar forearm fascia was divided under direct view. Proliferative flexor tenosynovium was noticed to encompass the median nerve and this was radically excised. After performing this maneuver, the nerve was noted to lie adequately decompressed. The wound was copiously irrigated with bacteriostatic saline, closed with 5-0 nylon in an interrupted horizontal mattress fashion. A Marcaine field block was performed at the operative site. Tourniquet was deflated. All of the fingers pinked up nicely and a sterile bulking conforming bandage was applied to the hand and the wrist. A fiberglass splint was fashioned to maintain the wrist in a modest amount of extension. This was held in place with a loosely wrapped Didier wrap. The patient tolerated the procedure well and was brought to the recovery room in satisfactory condition and discharged with a postoperative instruction sheet as well as a followup appointment. An oblique incision was marked out over the A1 cm of the left thumb. The upper extremity was exsanguinated, and a tourniquet was inflated to a pressure of 250 mmHg. The incision was made through the skin and subcutaneous tissues. All venous tributaries were controlled with bipolar cautery. The incision was deepened through the palmar tissues. The neurovascular bundles on the radial and ulnar sides of the flexor tendon sheath were identified and retracted away from the flexor tendon sheath and preserved. The A1 cm of the affected finger was identified and incised longitudinally, taking care to protect and preserve the flexor tendons within the sheath. After the complete length of the cm had been transected, the tendons were placed in a range of motion. There was noted to be good motion without any locking. The wound was then copiously irrigated with bacteriostatic saline and closed with 5-0 nylon in an interrupted horizontal mattress fashion. A Marcaine field block was performed at the operative site. The tourniquet was deflated. All the fingers pinked up nicely. A sterile bulky conforming bandage was applied to the hand, and the patient was returned to the recovery room in satisfactory condition and was discharged with a postoperative instruction sheet as well as a followup appointment. Job#: [id number] CODY
== END | disposition home or self-care (01) ==
LOC: OR 05:17
PROVIDERS: ATTEND Plastic Surgery
DX: M65.312 Trigger thumb, left thumb (principal); G56.01 Carpal tunnel syndrome, right upper limb; I10 Essential (primary) hypertension; G47.33 Obstructive sleep apnea (adult) (pediatric); E03.9 Hypothyroidism, unspecified; K21.9 Gastro-esophageal reflux disease without esophagitis; I45.10 Unspecified right bundle-branch block; I44.0 Atrioventricular block, first degree; N39.0 Urinary tract infection, site not specified; Z01.810 Encounter for preprocedural cardiovascular examination; Z01.812 Encounter for preprocedural laboratory examination; Z01.818 Encounter for other preprocedural examination
CPT/HCPCS: 26055; 36415; 64721; 71046; 85025; 93005; J0690; J1100; J2001; J2250; J2405